=== PATIENT | female | born 1940 | race Caucasian/White ===

== ENCOUNTER 2017-03-19 05:47 | Day surgery (SDC) | payer OTHER, MEDICARE ==
[~2017-03-19] VITALS: Ht 157.5 cm; Wt 69.4 kg
--- NOTE | ~2017-03-19 | O ---
[facility] [place] [address] OPERATIVE REPORT Name: TANESHA ESCUDERO Room #: 150-4 [facility].#: [id number] Admission: 03/19/17 Attend Phys: Kevin Patterson MD Discharge: Date of : 36 Report #: [id number] THIS REPORT FOR: //name// CC: SANGEETHA Patterson DATE OF SERVICE: 03/19/[address] Kevin Patterson, Dr. Sangeetha Patterson. PREOPERATIVE DIAGNOSIS: Left lower quadrant ventral incisional hernia. POSTOPERATIVE DIAGNOSIS: Left lower quadrant ventral incisional hernia. PROCEDURE: Repair of left lower quadrant ventral incisional hernia. SURGEON: Kevin Patterson MD DISTRIBUTION ANALYST: JEAN-PIERRE Suero ANESTHESIA: General. DESCRIPTION OF PROCEDURE: The patient was brought to the operating room and placed on operative table in the supine position. Sequential compression devices were in place for DVT prophylaxis. There was no indication for preoperative antibiotics. The hernia had been palpated and marked in the preoperative area. The patient underwent a general endotracheal anesthesia and the abdomen was then prepped and draped in a sterile fashion. Skin and subcutaneous tissue overlying the hernia was then infiltrated with 0.5% Marcaine. A left lower quadrant transverse skin incision was performed using a #10 scalpel blade. Hemostasis obtained using electrocautery as well as clamps and 2-0 chromic ties. Dissection was carried down through subcutaneous tissue to the external oblique fascia and in the suprapubic area as marked and palpated preoperatively there was a ventral incisional hernia from her previous Pfannenstiel incision. I was able to identify a hernia sac, which was dissected free, opened and excised. I was able to insert a finger then intraabdominally and I was able to palpate along the fascia laterally, superiorly and inferiorly. There was no evidence of any other hernia defects. Some of the Prolene suture was excised. There was a small bridge with another component medially, this bridge of fascia was lysed using the electrocautery. The preperitoneal space above the bladder was dissected free from the fascia. This defect was then easily closed with no tension using interrupted [id number] #1 Prolene sutures. Further deep infiltration with 0.5% Marcaine was performed and subcutaneous tissue was then reapproximated using simple interrupted 2-0 chromic sutures and the skin then closed with a running 4-0 subcuticular Vicryl stitch. [address] [address] OPERATIVE REPORT Name: TANESHA ESCUDERO Room #: 150-4 [facility]..#: [id number] Admission: 03/19/17 Attend Phys: Kevin Patterson MD Discharge: Date of : 36 Report #: [id number] Wound was then dressed with Mastisol, 1/2-inch Steri-Strips cut in half, Telfa, 4 x 4 gauze, sponge and tape. The patient was then awakened from the general endotracheal anesthesia, extubated, and taken to recovery room in good condition. Estimated blood loss was approximately 10 mL and the patient tolerated the procedure well. All sponge, lap and instrument counts were correct times 2. By: [id number] Kevin Patterson MD /nt
--- NOTE | ~2017-03-19 | EKG ---
[address] [address] ELECTROCARDIOGRAM REPORT Name: TANESHA ESCUDERO Room #: 150-4 [facility]#: [id number] Admission: 03/19/17 Attend Phys: Kevin Patterson MD Discharge: Date of : 36 Report #: [id number] THIS REPORT FOR: //name// [facility] Test Date: 2017-03-19 Test Time: 06:54:55 Pat Name: TANESHA ESCUDERO Department: Room: 150 4 Gender: F Roofing Layer: TEODORO : 1940 Requested By: Kevin Patterson Order Number: [id number] MD: Darryn Dangelo Measurements Intervals [place] Rate: 60 P: 70 [place]: 143 QRS: 40 QRSD: 98 T: 26 QT: 429 QTc: 429 Interpretive Statements Sinus rhythm No significant abnormality Compared to ECG 04/12/2011 12:15:47 Sinus bradycardia no longer present Electronically Signed On 03-19-2017 7:45:25 CDT by Darryn Dangelo [email or web address] <ELECTRONICALLY SIGNED> By: Darryn Dangelo MD, [facility] 03/19/17 [id number] [id number] Darryn Dangelo MD, [facility] /EPI
--- NOTE | ~2017-03-19 | S ---
[facility] [place] [address] SURGICAL PATH RPT PROCEDURE Name: TANESHA TERAN Room #: 150-4 [facility]..#: [id number] Admission: 03/19/17 Date of : 36 Discharge: Report #: [id number] Path Case #: [id number] PATHOLOGY REPORT COLLECTION DATE: 03/19/2017 RECEIVED DATE: 03/19/2017 SUBMITTING PHYS: Dr. Kevin Patterson OTHER PHYS: Dr. Michael Duran SPECIMEN(S) RECEIVED: A.Hernia sac * * * * * * * * * * * * FINAL DIAGNOSIS: "Hernia sac": - Hernia sac. PATHOLOGIST: Michael Rashid M.D. REPORT ELECTRONICALLY SIGNED BY: Michael Rashid M.D. DATE/TIME: 03/20/2017 12:25 * * * * * * * * * * * * GROSS PATHOLOGY: Received in formalin labeled "Tanesha Teran, hernia sac," are 2 pieces of fibromembranous tissue with attached fibroadipose tissue measuring 2.4 x 1.9 x 1.1 and 3.9 x 3.4 x 1.5 cm. No nodules or lesions are identified. Electrical Discharge Machine Operator tissue is submitted in cassette A1. (TSD; 03/19/2017) CLINICAL HISTORY: Ventral incisional hernia INITIAL CPT CODE(S): A; 35396 [facility] [address] [facility] , [place] [address] Technical services performed by [facility] at [address] [place] [address]., [address], [place] [address]. [facility] [address] [place] [address] SURGICAL PATH RPT PROCEDURE Name: KOTATANESHA Angelina Room #: 150-4 [facility] M.R.#: [id number] Admission: 03/19/17 Date of : 36 Discharge: Report #: [id number] Path Case #: [id number] [address] PHONE: [phone] DIRECTOR: Harshil Vargas M.D. * * * END OF REPORT * * *
[~2017-03-19 05:47] MED LIST: ACYCLOVIR 200200 MG PO; ADULT LOW DOSE81 MG PO; BENEFIBER1 G1 PO; BIOTIN-D1 GM MC; BIOTIN10000 MC1 PO; CAL-LAC100 MG PO; CALCIUM 600 WI1 EAC5 PO; CALCIUM PO; CELEXA 20 MG TA20 M1 PO; FISH OIL 1,001000 M2 PO; GABAPENTIN100 MG PO; LEXAPRO20 MG PO; MELOXICAM7.5 MG PO; MULTIVITAMINS PO; NEURONTIN 300300 M1 PO; NORCO 5-325 TA1 EACH PO; PRILOSEC 20 MG20 MG PO; SUPER B COMPLE150 MG PO; SYNTHROID100 MCG PO; SYNTHROID88 MCG PO; VITAMIN C100 M1 PO; VITAMIN D1000 UNI1 PO; VITAMIN D31000 UNI2 PO; VITAMINC500 PO
[2017-03-19 06:52] LABS: HEMATOCRIT 42.7 % (37.0-47.0); HEMOGLOBIN 14.1 gm/dL (12.0-15.0)
[2017-03-19 07:55] VITALS: BP 144/65
[2017-03-19] MEDS ORDERED: NORCO 5-325 TA1 EACH PO (10:01)
[2017-03-19 10:25] VITALS: BP 144/65
== END 2017-03-19 11:15 | disposition home or self-care (01) ==
LOC: TBA 05:47 → OR 05:47
PROVIDERS: Surgery
DX: K43.2 Incisional hernia without obstruction or gangrene (principal); F32.9 Major depressive disorder, single episode, unspecified; F41.9 Anxiety disorder, unspecified; Z90.711 Acquired absence of uterus with remaining cervical stump; K21.9 Gastro-esophageal reflux disease without esophagitis
CPT/HCPCS: 50010; 50101; 50386; 50417; 54118; 56524; 56525; 56526; 62110; 62900; 70005

== ENCOUNTER → 2018-05-28 | Outpatient (CLI) | payer OTHER, MEDICARE ==
[~2018-05-28] VITALS: Ht 157.5 cm; Wt 68.5 kg
[~2018-05-28] MED LIST changes: +BENEFIBER1 EAC1 PO; -BENEFIBER1 G1 PO; +BIOTIN1000 MCG PO; +CINNAMON500 MG PO; +CYMBALTA30 MG PO; +FLAXSEED OIL1000 MG PO; +SUPER B COMPLE1 EAC2 PO; +SYNTHROID100 MC1 PO; -SYNTHROID100 MCG PO
--- NOTE | ~2018-05-28 | P ---
[facility] [place] [address] PROCEDURE REPORT Name: TANESHA ESCUDERO Room #: [facility]#: [id number] Admission: 05/28/18 Attend Phys: Dominick Le MD Discharge: Date of : 36 Report #: [id number] THIS REPORT FOR: //name// CC: Dominick Patterson MD DATE OF SERVICE: 05/28/2018 BRIEF HISTORY: The patient is a 77-year-old woman for average risk screening colonoscopy. PREOPERATIVE DIAGNOSIS: Average risk screening colonoscopy. POSTOPERATIVE DIAGNOSIS: Normal average risk screening colonoscopy. MEDICATIONS: Deep sedation with propofol per anesthesia. SPECIMEN: None. ESTIMATED BLOOD LOSS: None. PROCEDURE: Colonoscopy to cecum and terminal ileum. FINDINGS: Prior to propofol sedation, procedure of colonoscopy discussed with the patient as well as potential risks and its complications. She indicates she understands and desires to proceed. DESCRIPTION OF PROCEDURE: With the patient in left lateral decubitus position, digital examination was completed, which revealed no abnormalities. Subsequently, the Olympus video colonoscope was introduced in the rectum, advanced under direct vision to the cecum. Done with minimal difficulty. Cecum was identified by the ileocecal valve and the appendiceal orifice. I was able to visualize the distal segment of terminal ileum, which was inspected and noted to be unremarkable. At that point, scope was slowly withdrawn and careful circumferential views obtained including retroflexing the scope in the ascending colon. Upon slow withdrawal of the scope, the prep was excellent. Mucosa was within normal limits, normal vascular pattern, normal light reflex. No neoplastic inflammatory lesions were seen. The mucosa throughout the entire colon was completely normal. The scope was withdrawn from the rectum. No abnormalities were seen. Upon retroflexion, no abnormalities were seen. The scope was withdrawn. The patient tolerated the procedure well. CONDITION OF THE PATIENT UPON DISCHARGE: Following procedure, the patient drowsy, aroused, conversant and will be discharged to home when fully ambulatory. [facility] [address] [place] [address] PROCEDURE REPORT Name: TANESHA ESCUDERO Room #: [facility]#: [id number] Admission: 05/28/18 Attend Phys: Dominick Le MD Discharge: Date of : 36 Report #: [id number] INSTRUCTIONS TO THE PATIENT AND FAMILY AT THE TIME OF DISCHARGE: No neoplastic lesions were seen today. Suggest high-fiber diet. At this point in life, the patient is unlikely to benefit from continued routine screening colonoscopy. However, for specific problems should develop, colonoscopy could be undertaken for that particular indication. Last colonoscopy was 10 years ago. Withdrawal time from the cecum was 6 minutes 44 seconds. <ELECTRONICALLY SIGNED> By: Dominick Le MD 05/30/18 1030 [id number] Dominick Le MD /nt
== END | disposition home or self-care (01) ==
LOC: GI 08:12
DX: Z12.11 Encounter for screening for malignant neoplasm of colon (principal); K21.9 Gastro-esophageal reflux disease without esophagitis; F32.9 Major depressive disorder, single episode, unspecified; F41.9 Anxiety disorder, unspecified; G62.9 Polyneuropathy, unspecified; Z87.891 Personal history of nicotine dependence; Z90.711 Acquired absence of uterus with remaining cervical stump; Z90.49 Acquired absence of other specified parts of digestive tract; Z98.890 Other specified postprocedural states; Z87.19 Personal history of other diseases of the digestive system; Z88.0 Allergy status to penicillin; Z79.82 Long term (current) use of aspirin; Z79.899 Other long term (current) drug therapy
CPT/HCPCS: 62110; 62900

== ENCOUNTER 2021-01-15 12:45 | Emergency (ER) | payer OTHER, MEDICARE ==
[~2021-01-15] VITALS: Ht 157.5 cm; Wt 70.8 kg
[2021-01-15] MEDS ORDERED: HYDROCODON-ACE1 EA14 PO (17:25)
[2021-01-15 19:40] VITALS: BP 127/51
== END 2021-01-15 19:41 | disposition home or self-care (01) ==
LOC: ER 12:45
DX: S92.342A Displaced fracture of fourth metatarsal bone, left foot, initial encounter for closed fracture (principal); S92.352A Displaced fracture of fifth metatarsal bone, left foot, initial encounter for closed fracture; S90.32XA Contusion of left foot, initial encounter; E03.9 Hypothyroidism, unspecified; K21.9 Gastro-esophageal reflux disease without esophagitis; Z90.49 Acquired absence of other specified parts of digestive tract; Z98.890 Other specified postprocedural states; Z88.0 Allergy status to penicillin; W01.0XXA Fall on same level from slipping, tripping and stumbling without subsequent striking against object, initial encounter; Y93.89 Activity, other specified; Y92.89 Other specified places as the place of occurrence of the external cause; Y99.8 Other external cause status